=== PATIENT | male | born 1995 | race Caucasian/White ===

== ENCOUNTER 2024-04-30 16:45 | Emergency (ER) | payer MEDICARE, SELFPAY ==
[2024-04-30 16:48] VITALS: BP 133/91
[2024-04-30 17:38] LABS: % Basophils 0.3 % (0-2); % Eosinophils 0.3 % (0-6); % Immature Granulocytes 0.1 % (0-0.5); % Lymphocytes 37.1 % (20.5-51.1); % Monocytes 7.2 % (1.7-9.3); Absolute Lymphocytes 3.3 10^3/uL (1.2-3.4); Absolute Monocytes 0.7 10^3/uL (0.1-0.6); Absolute Neutrophils 4.9 10^3/uL (1.4-6.5); Hematocrit 39.7 % (39.0-52.0); Hemoglobin 13.3 g/dL (13.0-18.0); Mean Corp Hgb Conc. 33.5 g/dL (33.0-37.0); Mean Corpuscular Hgb 29.3 pg (27.0-31.0); Mean Corpuscular Volume 87.4 fL (80.0-94.0); Mean Platelet Volume 8.6 fL (7.4-10.4); Nucleated Red Blood Cells % 0 % (-); Platelet Count 297 10^3/uL (130-400); Red Blood Cell Count 4.54 10^6/uL (4.70-6.10); Red Cell Dist. Width 13.1 % (11.5-14.5)
[2024-04-30 17:53] LABS: Amphetamines Positive (Negative); Benzodiazepines Positive (Negative); Blood Urea Nitrogen 17 mg/dl (9-20); Buprenorphine Positive (Negative); Calcium 9.9 mg/dl (8.4-10.2); Carbon Dioxide 28 mmol/L (22-30); Chloride 102 mmol/L (98-107); Glucose 102 mg/dl (70-99); Methamphetamines Positive (Negative); Potassium 3.9 mmol/L (3.5-5.1); Sodium 142 mmol/L (135-145); eGFR > 60.00
[2024-04-30 17:54] LABS: Barbiturates Negative (Negative); Cocaine Negative (Negative); Marijuana Negative (Negative); Methadone Negative (Negative); Opiates Negative (Negative); Phencyclidine Negative (Negative); Tricyclic Antidepressants Negative (Negative)
[2024-04-30 18:23] LABS: Fentanyl, Urine Positive (Negative)
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
[2024-04-30 18:48] VITALS: BP 142/88
== END 2024-04-30 18:58 | disposition home or self-care (01) ==
LOC: EMR 16:45
PROVIDERS: EMERGENCY PHYSICIAN Emergency Medicine
DX: T50.901A Poisoning by unspecified drugs, medicaments and biological substances, accidental (unintentional), initial encounter (principal); F17.200 Nicotine dependence, unspecified, uncomplicated; F90.9 Attention-deficit hyperactivity disorder, unspecified type
CPT/HCPCS: 99283; 80048; 80306; 80307; 82077; 85025

== ENCOUNTER 2024-04-30 20:04 | Emergency (ER) | payer MEDICARE, SELFPAY ==
[2024-04-30] VITALS (11 sets, daily range): BP systolic 74–125; BP diastolic 42–75; BMI 26.8
[2024-04-30] MEDS: NSS 1000 IV ×3 (20:25→21:34)
[2024-04-30 20:40] LABS: % Basophils 0.2 % (0-2); % Eosinophils 0.2 % (0-6); % Immature Granulocytes 0.3 % (0-0.5); % Lymphocytes 32.6 % (20.5-51.1); % Monocytes 5.1 % (1.7-9.3); % Neutrophils 61.6 % (42.2-75.2); Absolute Lymphocytes 2.1 10^3/uL (1.2-3.4); Absolute Monocytes 0.3 10^3/uL (0.1-0.6); Hematocrit 35.7 % (39.0-52.0); Hemoglobin 12.1 g/dL (13.0-18.0); Mean Corp Hgb Conc. 33.9 g/dL (33.0-37.0); Mean Corpuscular Hgb 29.3 pg (27.0-31.0); Mean Corpuscular Volume 86.4 fL (80.0-94.0); Mean Platelet Volume 8.8 fL (7.4-10.4); Nucleated Red Blood Cells % 0 % (-); Platelet Count 245 10^3/uL (130-400); Red Blood Cell Count 4.13 10^6/uL (4.70-6.10); White Blood Cell Count 6.5 10^3/uL (4.8-10.8)
[2024-04-30 21:05] LABS: ALT (SGPT) 18 U/L (0-50); AST (SGOT) 28 U/L (17-59); Albumin 4.4 g/dl (3.5-5.0); Alkaline Phosphatase 81 U/L (38-126); Blood Urea Nitrogen 16 mg/dl (9-20); Calcium 9.3 mg/dl (8.4-10.2); Carbon Dioxide 24 mmol/L (22-30); Chloride 104 mmol/L (98-107); Estimated Creatinine Clearance > 125 ml/min; Glucose 104 mg/dl (70-99); Sodium 139 mmol/L (135-145); Total Bilirubin 0.7 mg/dl (0.2-1.3); Total Protein 7.1 g/dl (6.3-8.2); eGFR > 60.00
[2024-04-30 21:06] LABS: Alcohol None Detected
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
[2024-05-01 00:16] LABS: Amphetamines Positive (Negative); Barbiturates Negative (Negative); Benzodiazepines Positive (Negative); Buprenorphine Positive (Negative)
[2024-05-01 00:17] LABS: Cocaine Negative (Negative); Marijuana Negative (Negative); Methamphetamines Positive (Negative); Opiates Negative (Negative); Phencyclidine Negative (Negative); Tricyclic Antidepressants Negative (Negative)
[2024-05-01 00:18] LABS: Methadone Negative (Negative)
[2024-05-01 00:29] LABS: Fentanyl, Urine Positive (Negative)
== END 2024-05-01 01:03 | disposition home or self-care (01) ==
LOC: EMR 20:04
PROVIDERS: EMERGENCY PHYSICIAN Emergency Medicine
DX: T40.2X1A Poisoning by other opioids, accidental (unintentional), initial encounter (principal); F17.200 Nicotine dependence, unspecified, uncomplicated
CPT/HCPCS: 99284; 96360; 96361; 80053; 80306; 80307; 82077; 85025

== ENCOUNTER 2024-07-20 08:01 | Emergency (ER) | payer MEDICARE, SELFPAY ==
[2024-07-20 08:05] VITALS: BP 130/94
[2024-07-20 08:26] LABS: Urine Albumin Trace (Neg - Trace); Urine Bilirubin Negative (Negative); Urine Character Clear (Clear); Urine Color Yellow; Urine Glucose Negative (Negative); Urine Ketone 1+ (Negative); Urine Leukocyte Negative (Negative); Urine Nitrite Negative (Negative); Urine Occult Blood 1+ (Negative); Urine Specific Gravity 1.025 (<1.030); Urine Urobilinogen Negative (Neg - 1+)
[2024-07-20 09:10] LABS: Urine Amorphous Seen; Urine Mucus Few; Urine Red Blood Cell 0-2 /HPF (0-2); Urine White Cell 0-2 /HPF (0-5)
--- NOTE | 2024-07-20 09:12 | ED.GENMED ---
History of Present Illness
General
Chief Complaint: Abdominal Symptoms
Time Seen by Provider: 07/20/24 08:48
History of Present Illness
History of Present Illness:
28-year-old male without significant past medical history presenting for right lower quadrant abdominal pain. Patient reports that pain started yesterday. Pain started around the umbilicus, now in the right lower quadrant. Denies any fever,
chills, chest pain, difficulty breathing, urinary complaints. Denies any vomiting or diarrhea. Reports he took ibuprofen for pain. Denies any history of abdominal surgeries. Reports that he was doing some heavy lifting, so is unsure if that
provoked his symptoms. Denies additional acute medical complaints.
Past History
Past History
ED Past Medical History: Psychiatric and Other (ADHD)
ED Past Surgical History: Tonsilectomy
Social History
Tobacco: Smoker
Alcohol: None
Drug: None
Personal: Single
Living: with family
Phy Exam
Physical Exam
Physical Exam:
General: Well-appearing, no clinical signs of dehydration, nontoxic and in no acute distress
HEENT: protecting airway
Neck: appears suppl
CV: Normal heart rate, regular rhythm
Resp: No accessory muscle use, no increased work of breathing
Abd: Soft and non-distended, focal tenderness to the right lower quadrant without rebound or guarding
Extremities: No deformities, no swelling, no erythema, pulses and sensation intact
Neuro: alert, no focal neurologic deficit
: deferred
Rectal: deferred
Psych: Normal affect
Skin: Intact
Sepsis
Sepsis Screening
Sepsis Assessment: Sepsis Ruled Out
Sepsis Screen
Sepsis Screen: Sepsis Ruled Out
Date: 07/23/24
Time: 15:12
Course
Orders/Labs/Results
Orders:
Orders
07/20/24 08:12
Urinalysis Reflex To Culture Urgent
Date Specimen was Collected: 07/20/24
Time Specimen was Collected: 08:08
Urine Microscopic Reflex Cult Urgent
07/20/24 09:11
Ketorolac [Toradol] 15 mg IM NOW STA
07/20/24 09:50
Complete Blood Count/With Diff Urgent
Comprehensive Metabolic Panel Urgent
Abnormal Lab Results
07/20/24 07/20/24
08:12 09:50
MCHC 32.9 L g/dL
(33.0-37.0)
Absolute Neuts (auto) 7.6 H 10^3/uL
(1.4-6.5)
Neutrophils % 77.5 H %
(42.2-75.2)
Lymphocytes % 17.2 L %
(20.5-51.1)
AST 60 H U/L
(17-59)
ALT 70 H U/L
(0-50)
Total Protein 8.3 H g/dl
(6.3-8.2)
Albumin 5.1 H g/dl
(3.5-5.0)
Urine Ketones 1+ A
(Negative)
Ur Occult Blood Reflex 1+ A
(Negative)
07/20/24 09:50
07/20/24 09:50
Vital Signs
Initial and Last Documented VS:
Initial Vital Signs
Temp Pulse Resp BP Pulse Ox
98.3 F 90 16 130/94 98
07/20/24 08:05 07/20/24 08:05 07/20/24 08:05 07/20/24 08:05 07/20/24 08:05
Last Documented Vital Signs
Temp Pulse Resp BP Pulse Ox
98.3 F 90 16 130/94 98
07/20/24 08:05 07/20/24 08:05 07/20/24 08:05 07/20/24 08:05 07/20/24 08:05
MDM/Problems Addressed
MDM/Problems Addressed:
28-year-old male without significant past medical history presenting for acute onset of right lower quadrant abdominal pain. Vital signs are normal.
On exam patient is resting comfortably, no acute distress or discomfort. Patient with focal tenderness to the right lower quadrant. Symptom presentation and exam is concerning for acute appendicitis. Plan for laboratory analysis and CT imaging.
Patient notes that he has to go brass pickler his daughter in an hour, so was unable to stay in the hospital for full workup. Risks explained regarding undiagnosed appendicitis, including rupture of the appendix leading to sepsis and severe infection.
Patient verbalized understanding, noting that he return to the hospital after he secures appropriate care for his daughter.
*Critical Care Note
Total Time (30-74mins, 75-104mins- exclusive of procedures): Not Applicable
ED Attending Note
-
Portions of this chart may have been created with voice recognition software.� Occasional wrong word or��sound alike� substitutions may have occurred due to the inherent limitations of voice recognition software.
Discharge Plan
Departure
Patient Disposition: Home (Routine Discharge)
Date of Disposition: 07/20/24
Time of Disposition: 10:17
Patient with high blood pressure during this ER visit?: No
Condition: Fair
Discharge Problem:
Abdominal pain
Instructions: Appendicitis in adults, Abdominal Pain
Prescriptions:
No Action
Adderall
Vistaril
clindamycin HCl 300 MG capsule
300 mg PO TID Qty: 30 0RF
ibuprofen 600 MG tablet
600 mg PO TIDPRN PRN (Reason: pain) Qty: 30 0RF
cyclobenzaprine 10 MG tablet
10 mg PO TIDPRN PRN (Reason: muscle spasm/tightness) Qty: 15 0RF
penicillin V potassium 500 MG tablet
500 mg PO Q6 Qty: 28 0RF
naloxone [Narcan] 4 mg/actuation spray,non-aerosol
4 mg intranasal DIRECTED Qty: 2 0RF
Referrals:
NONE,* [Family Provider] -
Activity Restrictions/Additional Instructions:
You were seen in the emergency department for concern of abdominal pain
You were found to have tenderness to the right area of the abdomen which is concerning for acute appendicitis. You were unable to stay in the hospital for social reasons, so we were unable to get a CT of your abdomen. You will need to return to
the hospital for advanced imaging of your abdomen to rule out acute appendicitis. Missing this diagnosis can lead to worsening infection which could cause rupture to the appendix. Please return to the emergency department as soon as possible
Please follow-up closely with your primary care physician.
Return to the emergency department for any worsening of your symptoms, or any development of chest pain, difficulty breathing, abdominal pain with persistent vomiting and inability to tolerate food or liquid by mouth (concern for dehydration),
weakness, headache or confusion, fever greater than 100.4, or any additional symptoms that are concerning to you.
Thank you for choosing [facility].
Interventions
Interventions:
*Risk Screen - Suicide Last Done: 07/20/24 08:05
*General Assessment Last Done: 07/20/24 09:55
*Neglect/Abuse Screening Last Done: 07/20/24 08:07
*ED COVID-19 Vaccine History Last Done: 07/20/24 09:55
*Nursing Disposition Last Done: 07/20/24 10:40
IP-Gwiyxa-Hlmkivmxgw Assessment Last Done: 07/20/24 09:55
Discharge Date and Time
Discharge Date/Time: 07/20/24 10:40
Print Language: [email or web address]
[2024-07-20] MEDS: TORADOL 15 MG IM (09:52)
[2024-07-20 10:00] LABS: % Basophils 0.3 % (0-2); % Eosinophils 0.3 % (0-6); % Immature Granulocytes 0.3 % (0-0.5); % Lymphocytes 17.2 % (20.5-51.1); % Monocytes 4.4 % (1.7-9.3); % Neutrophils 77.5 % (42.2-75.2); Absolute Lymphocytes 1.7 10^3/uL (1.2-3.4); Absolute Monocytes 0.4 10^3/uL (0.1-0.6); Absolute Neutrophils 7.6 10^3/uL (1.4-6.5); Hematocrit 42.5 % (39.0-52.0); Mean Corp Hgb Conc. 32.9 g/dL (33.0-37.0); Mean Corpuscular Hgb 29.7 pg (27.0-31.0); Mean Platelet Volume 8.9 fL (7.4-10.4); Nucleated Red Blood Cells % 0 % (-); Platelet Count 251 10^3/uL (130-400); Red Blood Cell Count 4.72 10^6/uL (4.70-6.10); Red Cell Dist. Width 13.9 % (11.5-14.5); White Blood Cell Count 9.8 10^3/uL (4.8-10.8)
[2024-07-20 10:16] LABS: ALT (SGPT) 70 U/L (0-50); AST (SGOT) 60 U/L (17-59); Albumin 5.1 g/dl (3.5-5.0); Alkaline Phosphatase 117 U/L (38-126); Blood Urea Nitrogen 12 mg/dl (9-20); Calcium 9.9 mg/dl (8.4-10.2); Carbon Dioxide 27 mmol/L (22-30); Chloride 98 mmol/L (98-107); Glucose 87 mg/dl (70-99); Potassium 4.1 mmol/L (3.5-5.1); Sodium 137 mmol/L (135-145); Total Bilirubin 0.5 mg/dl (0.2-1.3); Total Protein 8.3 g/dl (6.3-8.2); eGFR > 60.00
== END 2024-07-20 10:40 | disposition home or self-care (01) ==
LOC: EMR 08:01
PROVIDERS: Emergency Medicine; EMERGENCY PHYSICIAN Student in an Organized Health Care Education/Training Program
DX: R10.31 Right lower quadrant pain (principal); F17.200 Nicotine dependence, unspecified, uncomplicated
CPT/HCPCS: 99284; 96372; 80053; 81003; 81015; 85025